=== PATIENT | male | born 1990 | race Caucasian/White ===

== ENCOUNTER 2021-09-10 18:07 | Emergency (ER) | payer MEDICAID ==
[~2021-09-10] VITALS: Ht 193 cm; Wt 101.8 kg
[2021-09-10] MEDS ORDERED: MORPHINE SULFATE 4 MG/ML SYRINGE IVP ONE (20:00)
[2021-09-10] MEDS ORDERED: ONDANSETRON HCL 4 MG/2 ML VIAL IVP ONE (20:00)
[2021-09-10] MEDS ORDERED: BACITRACIN 0.9 GM PACKET OINTMENT TP ONE (20:15)
[2021-09-10] MEDS ORDERED: POVIDONE-IODINE 10% 15 ML SOLUTION UD TP ONE (20:15)
[2021-09-11] MEDS ORDERED: LIDOCAINE 5% TRANSDERMAL PATCH TD ONE
[2021-09-11] MEDS ORDERED: ACET-3385 PO (01:18)
[2021-09-11] MEDS ORDERED: LIDO700A15 TP (01:18)
[2021-09-11] MEDS ORDERED: IBUP-2070 PO (01:18)
[2021-09-11 01:56] VITALS: BP 130/72
[2021-09-11] MEDS ORDERED: IBUPROFEN 600 MG TABLET PO ONE (02:15)
== END 2021-09-11 02:00 | disposition home or self-care (01) ==
LOC: EMS 18:10
DX: S42.022A Displaced fracture of shaft of left clavicle, initial encounter for closed fracture (principal); S22.42XA Multiple fractures of ribs, left side, initial encounter for closed fracture; V29.49XA Motorcycle driver injured in collision with other motor vehicles in traffic accident, initial encounter; Y93.89 Activity, other specified; Y92.89 Other specified places as the place of occurrence of the external cause; Y99.8 Other external cause status
CPT/HCPCS: 71101; 72125; 72128; 72131; 73030; 73080; 96374; 96375; 99285; G0238; J2270; J2405